=== PATIENT | male | born 1995 | race Two or more races ===

== ENCOUNTER 2020-12-22 14:24 | Emergency (ER) | payer OTHER ==
[~2020-12-22] VITALS: Ht 172.7 cm; Wt 69.2 kg
[2020-12-22 14:24] VITALS: BP 121/65
[2020-12-22] MEDS ORDERED: CYCLOBENZAPRINE 10MG TABLET PO ONE (17:30)
[2020-12-22] MEDS ORDERED: KETOROLAC 60MG 2ML VIAL IM ONE (17:30)
--- NOTE | 2020-12-22 17:58 | REP ---
INDICATION: increased pain COMPARISON: None. TECHNIQUE: AP, lateral, and swimmers views. FINDINGS: Alignment and kyphosis is maintained. Vertebral bodies intact. No acute fracture / compression injury or subluxation. No degenerative changes. Paravertebral soft tissues are normal. IMPRESSION: Normal thoracic spine series. <Electronically signed by Raz Perez > 12/22/20 [id number]
--- NOTE | 2020-12-22 17:59 | REP ---
INDICATION: increased pain COMPARISON: None. TECHNIQUE: AP, lateral, bilateral oblique, and coned-down views of the lumbar spine. FINDINGS: Alignment and lordosis maintained. Vertebral bodies are intact. Disc spaces are relatively normal/age-appropriate. No acute fracture/compression injury or subluxation. No obvious spondylolysis or spondylolisthesis.. IMPRESSION: Normal Lumbosacral Spine series. <Electronically signed by Raz Perez > 12/22/20 [id number]
== END 2020-12-22 19:04 | disposition home or self-care (01) ==
LOC: M ED 14:24
DX: M54.9 Dorsalgia, unspecified (principal)
CPT/HCPCS: 72072; 72110; 96372; 99283; J1885

== ENCOUNTER 2021-02-18 12:41 | Emergency (ER) | payer OTHER ==
[~2021-02-18] VITALS: Ht 172.7 cm; Wt 69.1 kg
[2021-02-18 12:49] VITALS: BP 127/75
[2021-02-18] MEDS ORDERED: KETOROLAC 60MG 2ML VIAL IM ONE (16:15)
[2021-02-18 16:34] LABS: BASO % 0.5 % (0.0-1.0); EOS % 0.7 % (0.0-3.0); HEMATOCRIT 46.9 % (42.0-52.0); HEMOGLOBIN 15.3 g/dl (13.5-17.5); LYMPH # 1.9 10^3/uL (1.5-5.0); MEAN CORPUSCULAR HEMOGLOBIN 29.8 pg (27.0-33.0); MEAN CORPUSCULAR HGB CONC 32.6 g/dl (32.0-36.5); MEAN CORPUSCULAR VOLUME 91.4 fl (80.0-96.0); MONO # 0.5 10^3/uL (0.0-0.8); MONO % 8.9 % (2.0-8.0); NEUTROPHILS # 3.5 10^3/uL (1.5-8.5); NEUTROPHILS % 57.6 % (36.0-66.0); PLATELET COUNT, AUTOMATED 266 10^3/uL (150-450); RED BLOOD COUNT 5.13 10^6/uL (4.30-6.10); WHITE BLOOD COUNT 6.1 10^3/uL (4.0-10.0)
--- NOTE | 2021-02-18 16:39 | REP ---
INDICATION: pleuritic chest pain, eval for pneumonia, pleural effusion COMPARISON: None. TECHNIQUE: PA/Lateral FINDINGS: Lungs: Clear, no infiltrate. Heart: Normal in size. Mediastinum: Mediastinal silhouette unremarkable. Pleural angles: Unremarkable.. Bones and soft tissues: Unremarkable. IMPRESSION: No acute pulmonary disease. <Electronically signed by Uvaldo Jimenez > 02/18/21 0811
[2021-02-18 17:05] LABS: ERYTHROCYTE SEDIMENTATION RATE 3 mm/hr (0-15)
--- NOTE | 2021-02-18 22:00 | ECGEPIP ---
[facility] - ED Test Date: 2021-02-18 Pat Name: NKECHI JOSEPH Department: Room: - Gender: Male Examining Officer: WALESKA : 1995 Requested By: Pramod Proctor Order Number: [id number] Reading MD: Pramod Oro Measurements Intervals [place] Rate: 71 P: 71 GA: 160 QRS: 54 QRSD: 90 T: 43 QT: 394 QTc: 428 Interpretive Statements Normal sinus rhythm BENIGN EARLY REPOLARIZATION NO PRIORS FOR COMPARISON Electronically Signed on 02-18-2021 21:59:42 EDT by Pramod Oro
== END 2021-02-18 20:14 | disposition left against medical advice (07) ==
LOC: M ED 12:41
DX: R07.9 Chest pain, unspecified (principal); R11.2 Nausea with vomiting, unspecified; R06.00 Dyspnea, unspecified
CPT/HCPCS: 36415; 71046; 80047; 84484; 85025; 85379; 85652; 86140; 93005; 96372; 99283; J1885

== ENCOUNTER 2021-02-26 11:45 | Emergency (ER) | payer OTHER ==
[~2021-02-26] VITALS: Ht 172.7 cm; Wt 70.3 kg
[2021-02-26 13:15] LABS: BASO % 0.6 % (0.0-1.0); EOS # 0.1 10^3/uL (0.0-0.5); HEMATOCRIT 40.5 % (42.0-52.0); HEMOGLOBIN 13.5 g/dl (13.5-17.5); LYMPH # 1.8 10^3/uL (1.5-5.0); LYMPH % 35.1 % (24.0-44.0); MEAN CORPUSCULAR HEMOGLOBIN 30.3 pg (27.0-33.0); MEAN CORPUSCULAR HGB CONC 33.3 g/dl (32.0-36.5); MONO # 0.5 10^3/uL (0.0-0.8); NEUTROPHILS # 2.7 10^3/uL (1.5-8.5); NEUTROPHILS % 52.9 % (36.0-66.0); PLATELET COUNT, AUTOMATED 233 10^3/uL (150-450); RED BLOOD COUNT 4.45 10^6/uL (4.30-6.10)
[2021-02-26 13:33] LABS: BLOOD UREA NITROGEN 11 MG/DL (7-18); CALCIUM LEVEL 9.1 MG/DL (8.5-10.1); CARBON DIOXIDE LEVEL 28 MEQ/L (21-32); CHLORIDE LEVEL 107 MEQ/L (98-107); CREATININE FOR GFR 0.82 MG/DL (0.70-1.30); GLOMERULAR FILTRATION RATE > 60.0 (>60); GLUCOSE, FASTING 99 MG/DL (70-100); POTASSIUM SERUM 3.9 MEQ/L (3.5-5.1); SODIUM LEVEL 140 MEQ/L (136-145)
[2021-02-26 15:59] LABS: CK-MB VALUE MASS < 1.0 NG/ML (<3.6); CPK CREATINE PHOSPHOKINASE 257 U/L (39-308); MB/CK RELATIVE INDEX 0.39 (< OR =4); TROPONIN I < 0.02 NG/ML (< 0.10)
[2021-02-26] MEDS ORDERED: ISOVUE-370 76% 100ML VIAL As Ordered ONE (17:25)
[2021-02-26] MEDS: ONDANSETRON 4MG/2ML VIAL IV ONE ×2 (17:40→17:45)
--- NOTE | 2021-02-26 18:40 | REPVR ---
PROCEDURE INFORMATION: Exam: CTA Chest With Contrast Exam date and time: 02/26/2021 5:40 PM Age: 25 years old Clinical indication: Pain; Chest pressure; Additional info: Cp, elev d dimer TECHNIQUE: Imaging protocol: Computed tomographic angiography of the chest with contrast. 3D rendering (Not supervised by radiologist): MIP and/or 3D reconstructed images were created by the technologist. Radiation optimization: All CT scans at this facility use at least one of these dose optimization techniques: automated exposure control; mA and/or kV adjustment per patient size (includes targeted exams where dose is matched to clinical indication); or iterative reconstruction. Contrast material: ISOVUE 370; Contrast volume: 75 ml; Contrast route: INTRAVENOUS (IV); COMPARISON: CR Chest, 2 view PA, Lat 02/18/2021 4:15 PM FINDINGS: Pulmonary arteries: Normal. No pulmonary emboli. Aorta: Unremarkable. No aortic aneurysm. No aortic dissection. Lungs: Unremarkable. No consolidation. No masses. Pleural spaces: Unremarkable. No pneumothorax. No pleural effusion. Heart: Unremarkable. No cardiomegaly. No pericardial effusion. Lymph nodes: Unremarkable. No enlarged lymph nodes. Bones/joints: Unremarkable. No acute fracture. Soft tissues: Unremarkable. IMPRESSION: No pulmonary embolism. Electronically signed by: Momo Morales On 02/26/2021 18:40:40 PM
[2021-02-26] MEDS ORDERED: NAPR-837 PO (19:02)
[2021-02-26 19:59] VITALS: BP 133/77
== END 2021-02-26 20:00 | disposition home or self-care (01) ==
LOC: M ED 11:45
DX: R07.89 Other chest pain (principal)
CPT/HCPCS: 36415; 71275; 80048; 82550; 82553; 84484; 85025; 85379; 99284; Q9967